=== PATIENT | male | born 1990 | race Caucasian/White ===

== ENCOUNTER 2021-02-01 23:06 | Emergency (ER) | payer OTHER, SELFPAY ==
[2021-02-01 23:17] VITALS: BP 123/68; BP 154/80; PULSE 89; PULSE 92; RESP 20; TEMP 37; O2SAT 100; BMI 22.1
[2021-02-02] VITALS: RESP 20
--- NOTE | 2021-02-02 01:08 | ED.ANXIETY ---
HPI - Anxiety General Chief Complaint: Anxiety Stated Complaint: anxiety cocaine heroin use Time Seen by Provider: 02/02/21 00:34 Source: patient Mode of arrival: ambulatory Limitations: no limitations History of Present Illness HPI narrative: Patient comes to emergency room stating that he feels paranoid. Patient states ?the floor is coming at al , patient very anxious, admits to using methadone, crystal meth, cocaine and heroin. Patient states that today he was too anxious to walk. Per EMS patient was ambulatory at the scene. Patient denies suicidal or homicidal ideation Related Data Allergies Allergy/AdvReac Type Severity Reaction Status Date / Time No Known Allergies Allergy Unverified 03/16/20 19:51 [No Known Allergies*] Review of Systems Review of Systems: Constitutional : No Weight loss, No Fever, No Chills, No Night Sweats, No Fatigue, No Malaise ENT/Mouth : No Hearing loss, No Ear Pain, No Nasal Congestion, No Sinus Pain, No Hoarseness, No sore throat, No Rhinorrhea, No Swallowing Difficulty Eyes: No Eye Pain, No Swelling, No Redness, No Foreign Body, No Discharge, No Vision Changes Cardiovascular : No Chest Pain, No SOB, No Dyspnea on Exertion, No Orthopnea, No Edema, No Palpitations Respiratory : No Cough, No Sputum, No Wheezing, No Smoke Exposure, No Dyspnea Gastrointestinal : No Nausea, No Vomiting, No Diarrhea, No Constipation, No abdominal Pain, No Hematochezia, No Melena Genitourinary : no irregular bleeding, No Dysuria, No Urinary Frequency, No Hematuria, No Urinary Incontinence, No Urgency, No Flank Pain, No Urinary Flow Changes, No Hesitancy Musculoskeletal : No joint pain, No Myalgias, No Joint Swelling Skin : No Skin Lesions, No rash Neuro : No Weakness, No Numbness, No Paresthesias, No Loss of Consciousness, No Dizziness, No Headache Psych : Complaining of anxiety, feeling paranoid Heme/Lymph: No Bruising, No Bleeding,No Lymphadenopathy Endocrine : No Polyuria, No Polydipsia, No Temperature Intolerance PMFSH Past Medical History Medical History Drug abuse and dependence Social History Social History Alcohol intake: current Alcohol intake frequency: 0-2 drinks per day Patient Tobacco Use Status: Current everyday Tobacco user Smoked in Last 30 Days: Yes Use of substances other than those prescribed or required for medical reasons: Yes Substance Use Type: Amphetamines, Crack/Cocaine, Heroin, IV Drugs, Methamphetamine and Opiates Substance Use Frequency: Chronic Longstanding Last Used Substance: Just Prior to Admission Any prior treatment program specific to substance use: No Advance Directives: No Advance Directives Information Provided: No Physical Exam Vital Signs: Vital Signs: Last Vital Signs Temp 98.6 F 02/01/21 23:17 Pulse 89 02/01/21 23:17 Resp 20 02/01/21 23:17 BP 154/80 H 02/01/21 23:17 Pulse Ox 100 02/01/21 23:17 Body Mass Index 22.1 Const: Other: Appearance: Alert. Oriented X3. Very anxious Eyes: Pupils equal, round and reactive to light. ENT: Pharynx normal. Neck: Normal inspection. Neck supple. No lymph nodes noted. No crepitus CVS: Normal heart rate and rhythm. Pulses normal. Normal S1 and S2 Respiratory: No respiratory distress. Breath sounds normal. No Wheezing. No rales Abdomen: Soft and nontender. No rigidity. No distention. good BS x4 Skin: Skin warm and dry. Normal skin color. Normal skin turgor. Extremities: No lower extremity edema. Seems to be shaking upper extremities purposefully Neuro: Oriented X 3. No slurred speech, cranial nerves 2-12 grossly intact. Course Course Course Narrative: Patient not suicidal or homicidal. Patient is very anxious, given 1 mg of p.o. Ativan. [facility] consult pending. Sign-out given to Dr. Diaz Discharge Plan Discharge Clinical Impression: Acute anxiety
[2021-02-02] MEDS: LORazepam 1 MG TABLET PO ×3 (01:54→08:59)
--- NOTE | 2021-02-02 03:13 | PC.NURSE ---
pt straight cathed by this nurse with assistance by PCT Stephon. 800cc of clear yellow urine emptied from bladder. pt states he is feeling better and less anxious now that bladder is empty. urine specimen sent to lab call rehan in reach
[2021-02-02 03:22] LABS: Appearance Urine CLEAR; Color Urine YELLOW; Glucose Urine UA NEG (NEG); Leukocyte Esterase Urine NEG (NEG); Nitrite Urine NEG (NEG); UACC Culture Trigger NO; Urine Blood TRACE (NEG); Urine Ketones NEG (NEG); Urine Protein NEG (NEG-TRACE)
[2021-02-02 03:23] LABS: Amorphous Sediment Urine 1+ /LPF; Bacteria Urine TRACE /LPF; Squamous Epithelial Cell Urine TRACE /LPF; WBC Urine 0-2 /HPF (0-4)
[2021-02-02 03:40] LABS: Amphetamine Screen Urine Not Detected (Not Detect); Barbiturates, Urine Not Detected (Not Detect); Benzodiazepines Screen Urine Not Detected (Not Detect); Cannabinoid Screen Urine Not Detected (Not Detect); Cocaine Screen Urine POSITIVE (Not Detect); Opiate Screen Urine POSITIVE (Not Detect); Phencyclidine Screen Urine Not Detected (Not Detect)
--- NOTE | 2021-02-02 05:23 | PC.NURSE ---
pt unable to urinate and is requesting to be straight cathed again. pt shaking heavily and sweating upon entering room. this nurse bladder scanned pt and scan showed 708ml this nurse straight cathed pt and emptied 750cc or clear yellow urine. pt relieved by straight cath and shaking subsequently decreased. pt given new clean gown and fresh blanket. call van in reach.
[2021-02-02 06:24] VITALS: BP 149/97; PULSE 107; RESP 16; O2SAT 98
--- NOTE | 2021-02-02 07:40 | PC.NURSE ---
Pt tremulous, states inability to void, bladder scan showing 400ml. Pt encouraged to void on own. Shaking and anxious. Verbally able to calm pt slightly.
[2021-02-02 09:00] VITALS: BP 129/74; PULSE 107; RESP 16; O2SAT 97
--- NOTE | 2021-02-02 09:28 | PC.NURSE ---
Pt able to void by himself, Ativan ordered and given. Methadone verification form filled out. Refferred to [facility]. Pt states he is not SI but anxious and request to go to [facility] Vitals stable.
[2021-02-02 10:55] VITALS: BP 122/64; PULSE 100; RESP 16; O2SAT 97
--- NOTE | 2021-02-02 10:56 | PC.NURSE ---
Pt able to void using urinal when needed. Methadone dose given. Pt remains tremulous and anxious despite other efforts noted. States he will attempt to rest s/p Methadone dosing. Cooperative with care. Warm blanket provided. Awaiting [facility] arrival for evaluation
--- NOTE | 2021-02-02 12:01 | PC.NURSE ---
Pt appears less anxious at this time but still relays reports of shaking intermittently, awaiting [facility]
[2021-02-02 14:11] LABS: MANUAL DIFF FLAG NO
[2021-02-02 14:12] LABS: Basophils Percent Auto 0.1 % (0-2); Hematocrit 39.2 % (42-52); Hemoglobin 13.4 g/dl (14.0-18.0); Imm Gran Abs Auto 0.02 X10*3/uL (0.00-0.03); Imm Gran Pct Auto 0.2 % (0.0-0.4); Lymphocytes Absolute Auto 2.7 X10*3/uL (1.2-4.9); Lymphocytes Percent Auto 31.9 % (20-40); Mean Corpuscular HGB Conc 34.2 g/dl (31.0-36.0); Mean Corpuscular Hemoglobin 28.7 pg (27.0-33.0); Mean Corpuscular Volume 83.9 fL (80-98); Mean Platelet Volume 10.9 fL (9.4-12.4); Monocytes Absolute Auto 0.5 X10*3/uL (0.1-1.2); Monocytes Percent Auto 5.4 % (2-11); Neutrophils Absolute Auto 5.2 X10*3/uL (2.0-8.3); Neutrophils Percent Auto 62.4 % (45-73); Platelet Count 288 X10*3/uL (160-400); Red Blood Count 4.67 X10*6/uL (4.60-5.80); Red Cell Distribution Width 13.3 % (11.0-16.0); White Blood Count 8.4 X10*3/uL (4.8-10.8)
[2021-02-02 14:39] LABS: Ethanol < 10 mg/dL
[2021-02-02 14:44] LABS: Alanine Aminotransferase 16 U/L (0-40); Albumin Level 4.5 g/dL (3.5-5.0); Alkaline Phosphatase 117 U/L (39-117); Anion Gap 14 (12-20); Aspartate Amino Transferase 13 U/L (5-37); Bilirubin Direct 0.2 mg/dL (0.0-0.5); Bilirubin Total 0.5 mg/dL (0.0-1.0); Blood Urea Nitrogen 10 mg/dL (9-16); Calcium 10.9 mg/dL (8.4-10.2); Carbon Dioxide 25 mmol/L (22-29); Chloride 108 mmol/L (96-108); Creatinine Clr Calc Pharmacy 119.4; Estimated Glomerular Filt Rate > 60; Glucose Random 102 mg/dL (60-115); Potassium 3.9 mmol/L (3.3-5.1); Sodium 143 mmol/L (135-145); Total Protein 7.8 g/dL (6.5-8.0)
[2021-02-02 15:00] LABS: Influenza A PCR NEGATIVE (Negative); Influenza B PCR NEGATIVE (Negative); Resp Syncy Virus RNA Qual PCR NEGATIVE (Negative); SARS COV2 PCR INHOUSE NEGATIVE (Negative)
[2021-02-02] MEDS: hydrOXYzine HCL 50 MG TABLET PO (15:45)
--- NOTE | 2021-02-02 15:45 | PC.NURSE ---
CARE team and Mc seeing pt, plan to attempt to get into detox
[2021-02-02 16:54] VITALS: BP 138/90; PULSE 104; RESP 16; TEMP 36.5; O2SAT 99
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
== END 2021-02-02 17:00 | disposition home or self-care (01) ==
PROVIDERS: Physician Assistant; Emergency Provider Emergency Medicine
DX: F41.9 Anxiety disorder, unspecified (principal); R33.9 Retention of urine, unspecified; F14.90 Cocaine use, unspecified, uncomplicated; F11.90 Opioid use, unspecified, uncomplicated; Z20.822 Contact with and (suspected) exposure to COVID-19
CPT/HCPCS: 0241U; 36415; 80048; 80076; 80307; 81001; 82077; 83735; 85025; 99285

== ENCOUNTER 2021-02-14 23:47 | Emergency (ER) | payer OTHER, SELFPAY ==
[2021-02-14 23:52] VITALS: BP 129/79; PULSE 100; RESP 18; TEMP 37.1; O2SAT 96; BMI 23.6
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
[2021-02-15 01:49] VITALS: BP 100/58; PULSE 52; TEMP 36.4; O2SAT 96
== END 2021-02-15 07:46 | disposition home or self-care (01) ==
LOC: HO.ED 02-15 00:44
PROVIDERS: Emergency Provider Emergency Medicine
DX: R45.1 Restlessness and agitation (principal); F14.10 Cocaine abuse, uncomplicated; S60.512A Abrasion of left hand, initial encounter; W22.09XA Striking against other stationary object, initial encounter; F17.210 Nicotine dependence, cigarettes, uncomplicated; Y93.9 Activity, unspecified; Y92.9 Unspecified place or not applicable; Y99.9 Unspecified external cause status
CPT/HCPCS: 99283; 99284

== ENCOUNTER → 2021-09-28 10:40 | Outpatient (REF) | payer OTHER, SELFPAY ==
--- NOTE | 2021-09-28 10:56 | ECG_ITS ---
Test Reason : methadone qt prolongation Blood Pressure : / mmHG Vent. Rate : 070 BPM Atrial Rate : 070 BPM P-R Int : 132 ms QRS Dur : 090 ms QT Int : 396 ms P-R-T Axes : 018 -12 015 degrees QTc Int : 427 ms Normal sinus rhythm Normal ECG No previous ECGs available Referred By: HAILEY ALLAN Electronically Signed By:LEONA LOGAN
== END ==
LOC: HO.CARD 10:40
PROVIDERS: PCP Family Medicine; Visit Provider Family Medicine
DX: I45.81 Long QT syndrome (principal); Z79.891 Long term (current) use of opiate analgesic
CPT/HCPCS: 93005